=== PATIENT | male | born 1980 | race Caucasian/White ===

== ENCOUNTER 2017-08-21 16:19 | Emergency (ER) | payer BC ==
[~2017-08-21] VITALS: Ht 182.9 cm; Wt 85.8 kg
[2017-08-21 20:07] LABS: BASOPHIL (%) 0.2 % (0-1); EOSINOPHIL (%) 1.5 % (0-5); EOSINOPHIL COUNT 0.2 K/uL (0-0.3); HEMATOCRIT 41.9 % (38.0-50.0); HEMOGLOBIN 14.6 G/DL (12.5-16.6); IMMATURE GRANULOCYTE (%) 0.3 % (0.0-0.7); LYMPHOCYTE (%) 30.7 % (15-42); MCH 32.6 PG (29.0-34.0); MCHC 34.8 G/DL (30.0-36.0); MCV 93.5 FL (86-99); MONOCYTE (%) 11.1 % (3-12); MONOCYTE COUNT 1.1 K/uL (0-0.8); NEUTROPHIL (%) 56.2 % (45-76); NEUTROPHIL COUNT 5.6 K/uL (1.8-6.4); PLATELET COUNT 237 K/uL (156-360); RBC DIS.WIDTH-CV 12.5 % (11.8-14.6); RBC DIS.WIDTH-SD 43.1 % (39-53); RED BLOOD COUNT 4.48 M/uL (4.00-5.50); WHITE BLOOD COUNT 9.9 K/uL (4.1-10.2)
[2017-08-21 20:24] LABS: PTT 29.5 SEC (25-37)
[2017-08-21 20:25] LABS: CHLORIDE 103 mEq/L (99-109); POTASSIUM 3.4 mEq/L (3.7-5.4); SODIUM 139 mEq/L (136-147)
[2017-08-21 20:26] LABS: GLUCOSE 113 mg/dL (70-99)
[2017-08-21 20:30] LABS: CREATININE 0.8 mg/dL (0.6-1.3); GFR ESTIMATE (CALCULATED) > 59 mL/min/ (58.99-99999)
[2017-08-21 20:31] LABS: UREA NITROGEN (BUN) 13 mg/dL (9-23)
[2017-08-21 21:39] VITALS: BP 101/62
== END 2017-08-21 21:40 | disposition home or self-care (01) ==
LOC: EME 16:19
PROVIDERS: Emergency Medicine
DX: S02.119A Unspecified fracture of occiput, initial encounter for closed fracture (principal); S02.0XXA Fracture of vault of skull, initial encounter for closed fracture; S06.6X9A Traumatic subarachnoid hemorrhage with loss of consciousness of unspecified duration, initial encounter; W22.8XXA Striking against or struck by other objects, initial encounter; F17.200 Nicotine dependence, unspecified, uncomplicated
CPT/HCPCS: 70450; 80048; 85025; 85610; 85730; 86850; 86900; 86901; 99281; 99284